=== PATIENT | female | born 1985 | race Asian ===

== ENCOUNTER 2024-04-13 07:35 | Inpatient (IN) ==
[2024-04-13] MEDS ORDERED: CALCIUM CARBONATE 500 MG CHEWABLE TAB PO PRN (08:10)
[2024-04-13] MEDS ORDERED: LIDOCAINE 1% LOCAL 20 ML VIAL INFIL PRN (08:10)
[2024-04-13] MEDS ORDERED: OXYTOCIN 30 UNITS/NSS 30 UNITS/500 ML BAG IV PRN (08:10)
[2024-04-13] MEDS ORDERED: ACETAMINOPHEN 325 MG TAB PO PRN (08:10)
[2024-04-13 08:36] LABS: Hemoglobin 11.3 g/dl (12.0-16.0); Mean Corpuscular Hemoglobin 25.8 pg (25.0-34.0); Mean Corpuscular Hgb Conc 32.3 g/dL (32.0-36.0); Mean Corpuscular Volume 79.9 fL (80.0-100.0); Mean Platelet Volume 10.8 fL (9.4-12.4); Platelet Count 250 K/uL (130-400); RDW Standard Deviation 40.8 fL (36.4-46.3); Red Blood Count 4.38 M/uL (4.20-5.40); White Blood Count 7.59 K/ul (4.8-10.8)
--- NOTE | 2024-04-13 08:48 | History & Physical Report ---
Date of Service April 13, 2024 Assessment & Plan (1) resulting from in-vitro fertilization: Plan: Cervical catheter placed under sterile conditions using speculum balloon passed through the cervix using a ring forceps all inflated to 30 cc patient tolerated well Pitocin will be started estimated weight 78 pounds GBS positive penicillin started Pitocin will be started Admission and Anticipated Discharge Date Admission Date: April 13, 2024 History of Present Illness Primary Care Provider: Savannah Vazquez, Patient at 39+ weeks IVF except induction today vertex on ultrasound yesterday cervix long thick closed Allergies Allergy/AdvReac Type Severity Reaction Status Date / Time No Known Allergies Allergy Verified 04/12/24 09:57 Home Medications Medication Instructions Recorded Confirmed Type ondansetron HCl 4 mg tablet 4 mg PO DAILY #30 tabs 09/28/23 04/12/24 Rx [id number] PO 10/02/23 04/12/24 History [ Plus] valacyclovir [Valtrex] PO 10/02/23 04/12/24 History Patient History Medical History Female infertility, unexplained Chicken pox IBS (irritable bowel syndrome) Lichen sclerosus Surgical History History of removal of cyst H/O wisdom tooth extraction Hx of tonsillectomy Family History Denies family history of Ovarian cancer Prostate cancer Myocardial infarction Breast cancer Colorectal cancer Social History Smoking Status: Never smoker Second Hand Exposure: No; Do You Dip or Chew Tobacco: No; Hx Alcohol Use: Yes Hx Substance Use: No Preferred Language: Mongolian marital status: marital status details: Mariusz Maloney (38) [phone] Current Living Situation: Spouse Current Living Situation Comment: Lives with spouse, 4 cats- changing litter current occupational status: employed current occupation: [employer] How many Children do You have: 0 Feels Safe at Home: Yes Childhood Exposure to Second-Hand Smoke: No Diet: lactose free caffeine: Yes Dental Care, Regularly: Yes Physical Activity Frequency: 1-2 Times per Week Seatbelt Use: always Sunscreen Use: Yes Physical Exam Constitutional: WD/WN, vitals as above well developed and well nourished Respiratory: normal respiratory effort, lungs clear to auscultation normal respiratory effort Cardiovascular: RRR, no murmur, no edema Gastrointestinal (Abdomen): normal bowel sounds, soft, nontender, no hepatosplenomegaly Results & Data Vital Signs (Past 12 Hours) Vital Signs Temp Pulse BP 04/13/24 08:05 97.9 F 72 108/66 Coding Level of Care Code None Diagnoses resulting from in-vitro fertilization O09.819 CPT Codes Kelly Bulb Placement for Cervical Ripening - 91079 ([id number])
[2024-04-13] MEDS: LACTATED RINGER'S 1,000 ML IV SCH (09:35)
[2024-04-13] MEDS: PENICILLIN GK 6 MU in DEXTROSE 5% 250 ML IV STA (09:37)
[2024-04-13] MEDS: OXYTOCIN 30 UNITS/NSS 30 UNITS/500 ML BAG IV PRN (09:39)
[2024-04-13] MEDS ORDERED: LACTATED RINGER'S 1,000 ML IV SCH (10:15)
[2024-04-13] MEDS: PENICILLIN GK 3 MU in DEXTROSE 5% 100 ML IV PRN (13:54)
[2024-04-13] MEDS ORDERED: ePHEDrine sulfate 50 MG/ML AMP IV PRN (19:24)
[2024-04-13] MEDS ORDERED: NALOXONE HCL 1 MG in SODIUM CHLORIDE 0.9% 1,000 ML IV PRN (19:24)
[2024-04-13] MEDS ORDERED: NALOXONE HCL 0.4 MG/1 ML VIAL/CARP IV PRN (19:24)
[2024-04-13] MEDS ORDERED: NALBUPHINE HCL INJ 10 MG/ML AMP IV PRN (19:24)
[2024-04-13] MEDS ORDERED: LIDOCAINE 2% MPF LOCAL 5 ML VIAL EPI PRN (19:24)
[2024-04-13] MEDS ORDERED: diphenhydrAMINE 50 MG/ML VIAL IV PRN (19:24)
[2024-04-13] MEDS ORDERED: ROPIVACAINE 0.5% PF 5 MG/ML 20 ML VIAL EPI PRN (19:24)
--- NOTE | 2024-04-13 19:25 | Anesthesiology Consultation ---
Date of Service April 13, 2024 Assessment & Plan (1) Encounter for pre-operative examination: Chart Review Chart Review: Patient NOT seen in Pre Admission Testing and Acceptable Risk for Labor Epidural Consults Requested none History Height/Weight Height: 5 ft Weight: 70.76 kg Allergies Allergy/AdvReac Type Severity Reaction Status Date / Time No Known Allergies Allergy Verified 04/13/24 08:53 Medications Home Medications Medication Instructions Recorded Confirmed Last Taken vits [id number]-[id number] fum 1 tab PO DAILY 04/13/24 04/13/24 04/12/24 20:00 27 mg iron-folic acid 800 mcg tablet ( Vitamin) valacyclovir 500 mg tablet 500 mg PO DAILY 04/13/24 04/13/24 04/13/24 07:00 (Valtrex) Active Medications Generic Name Dose Route Start Last Admin Trade Name Freq PRN Reason Stop Dose Admin Oxytocin 30 units in 500 mls @ 14 mls/hr 04/13/24 08:10 04/13/24 19:03 Pitocin 30 Units/Nss IV 04/15/24 08:09 0.84 units/hr .Q24H PRN 14 mls/hr Labor Induction/Augmentation Titration Protocol 0.84 UNITS/HR Penicillin G Potassium 3 mu/ 106 mls @ 100 mls/hr 04/13/24 11:10 04/13/24 18:05 Dextrose IV 04/23/24 11:09 100 mls/hr Q4H PRN Administration GBS(+) Until Delivery Lactated Ringer's 1,000 mls @ 50 mls/hr 04/13/24 09:30 04/13/24 09:35 Lr IV 04/14/24 09:29 50 mls/hr .Q20H SUZI Administration Past Medical History Medical History (Updated 04/13/24 @ 19:25 by Giovani Truong MD) Encounter for pre-operative examination Female infertility, unexplained Chicken pox IBS (irritable bowel syndrome) Lichen sclerosus Past Family History Family History Denies family history of Ovarian cancer Prostate cancer Myocardial infarction Breast cancer Colorectal cancer Past Surgical History Surgical History History of removal of cyst H/O wisdom tooth extraction Hx of tonsillectomy Social History Smoking Status: Never smoker Do You Dip or Chew Tobacco: No Hx Alcohol Use: No Hx Substance Use: No Physical Exam Vital Signs Last Vital Signs Temp 36.8 C 04/13/24 15:47 Pulse 78 04/13/24 19:46 Resp 18 04/13/24 15:47 BP 121/74 04/13/24 19:45 Pulse Ox 94 04/13/24 19:46 Testing Laboratory Results 04/13/24 08:20
[2024-04-13] MEDS: BUPIVACAINE 0.25% PF 30 ML VIAL EPI STA (19:49)
[2024-04-13] MEDS: LIDOCAINE 2%/EPINEPHRINE 1:200,000 20 ML PF EPI STA (19:49)
[2024-04-13] MEDS: fentaNYL citrate PF 100 MCG/2 ML VIAL EPI STA (19:50)
[2024-04-13] MEDS: fentANYL 2 MCG/ML BUPIVacaine 0.125%-NSS 100ML BAG EPI PRN (19:50)
[2024-04-13] MEDS: LIDOCAINE 2%/EPINEPHRINE 1:200,000 20 ML PF ONE (20:16)
[2024-04-13] MEDS: fentaNYL citrate PF 100 MCG/2 ML VIAL ONE (20:16)
[2024-04-13] MEDS: fentANYL 2 MCG/ML BUPIVacaine 0.125%-NSS 100ML BAG ONE (20:16)
[2024-04-13] MEDS: BUPIVACAINE 0.25% PF 30 ML VIAL ONE (20:16)
[2024-04-13] MEDS: SODIUM CHLORIDE 0.9% PF INJ 10 ML VIAL ONE (20:17)
[2024-04-13] MEDS: ePHEDrine sulfate 50 MG/ML AMP ONE (20:17)
[2024-04-13] MEDS: ONDANSETRON INJ 2 MG/ML 2 ML VIAL IV PRN (23:00)
[2024-04-14] MEDS: SODIUM CHLORIDE 0.9% PF INJ 10 ML VIAL EPI STA (02:20)
[2024-04-14] MEDS ORDERED: NURSING L&D Epidural Breakthrough Pain Update ONE (04:21)
[2024-04-14] MEDS: BUPIVACAINE 0.25% PF 30 ML VIAL EPI PRN (06:10)
--- NOTE | 2024-04-14 06:11 | Anesthesia Procedure Note ---
Date of Service April 14, 2024 Anesthesia Epidural Re-Dose Vital Signs Temp Pulse Resp BP Pulse Ox 36.7 C 78 18 104/60 100 04/14/24 03:00 04/14/24 06:09 04/14/24 04:00 04/14/24 06:09 04/14/24 06:04 Notes Pain Intensity: 7 Dilatation (cm): 6.0 Effacement (%): 75 Called by nursing to evaluate epidural as the patient is having increased pain. The epidural was re-dosed with the following medications (all medications via epidural route) after negative aspiration of the epidural catheter for CSF/HEME. 4ml of 0.25% bupivacaine mixed with 4ml of 2% lidocaine. After Epidural Re-Dose Mental Status: alert / awake / arousable Pain: improving with treatment Airway Patency, RR, SpO2: stable & adequate BP & HR: stable & adequate
--- NOTE | 2024-04-14 07:38 | Labor Progress Brief Note ---
Date of Service April 14, 2024 Patient has made slow progress she has reached a 6 cm on 20 milliunits of Pitocin she had a cervical Kelly and spontaneous rupture of membranes I just checked her now it is 6 0 station 100% IUPC is placed to see if we can optimize her contraction pattern discussed the possibility of however contraction pattern on the external toco is not picking an ideal pattern Assessment & Plan Admission and Anticipated Discharge Date Admission Date: April 13, 2024 Results & Data Vital Signs (Past 12 Hours) Vital Signs Temp Pulse Resp BP Pulse Ox 04/14/24 07:34 72 100 04/14/24 07:29 70 100 04/14/24 07:24 77 114/57 L 100 04/14/24 07:19 82 100 04/14/24 07:14 80 100 04/14/24 07:09 99 04/14/24 07:09 76 04/14/24 07:09 75 100/56 L 04/14/24 07:04 72 98 04/14/24 06:59 74 98 04/14/24 06:54 72 99/56 L 99 04/14/24 06:49 72 99 04/14/24 06:44 72 99 04/14/24 06:39 98 04/14/24 06:39 73 04/14/24 06:39 75 102/57 L 04/14/24 06:34 80 100 04/14/24 06:29 76 100 04/14/24 06:24 85 100 04/14/24 06:23 75 105/57 L 04/14/24 06:21 76 96/54 L 04/14/24 06:19 76 104/60 100 04/14/24 06:14 77 100 04/14/24 06:13 77 105/60 04/14/24 06:11 75 104/61 04/14/24 06:09 100 04/14/24 06:09 73 04/14/24 06:09 78 104/60 04/14/24 06:07 75 107/59 L 04/14/24 06:05 71 98/53 L 04/14/24 06:04 75 100 04/14/24 06:03 78 106/57 L 04/14/24 06:01 75 107/57 L 04/14/24 05:59 79 100 04/14/24 05:57 65 89/52 L 04/14/24 05:55 60 93/50 L 04/14/24 05:54 69 100 04/14/24 05:53 67 104/65 04/14/24 05:49 69 98 04/14/24 05:48 62 102/66 04/14/24 05:44 61 99 04/14/24 05:39 69 99 04/14/24 05:34 99 04/14/24 05:34 67 04/14/24 05:34 70 112/71 92 04/14/24 05:30 97.9 F 04/14/24 05:29 79 100 04/14/24 05:24 73 99 04/14/24 05:19 72 113/73 99 04/14/24 05:14 73 99 04/14/24 05:09 71 99 04/14/24 05:04 98 04/14/24 05:04 67 04/14/24 05:04 68 104/72 04/14/24 04:59 68 99 04/14/24 04:54 72 98 04/14/24 04:50 68 113/67 04/14/24 04:49 70 100 04/14/24 04:44 74 100 04/14/24 04:39 72 99 04/14/24 04:35 75 110/56 L 04/14/24 04:34 83 100 04/14/24 04:29 70 98 04/14/24 04:24 72 97 04/14/24 04:19 67 97/58 L 99 04/14/24 04:14 71 99 04/14/24 04:09 71 99 04/14/24 04:04 72 98 04/14/24 04:03 68 93/50 L 04/14/24 04:00 18 04/14/24 04:00 18 04/14/24 03:59 74 98 04/14/24 03:54 64 99 04/14/24 03:49 66 100 04/14/24 03:48 68 101/55 L 04/14/24 03:44 63 98 04/14/24 03:39 65 98 04/14/24 03:34 65 100/56 L 99 04/14/24 03:30 18 04/14/24 03:30 18 04/14/24 03:29 64 98 04/14/24 03:24 67 98 04/14/24 03:19 71 99 04/14/24 03:18 68 97/56 L 04/14/24 03:14 65 98 04/14/24 03:09 69 98 04/14/24 03:04 100 04/14/24 03:04 72 04/14/24 03:04 70 108/67 04/14/24 03:00 98.1 F 04/14/24 02:59 86 100 04/14/24 02:54 59 L 98 04/14/24 02:49 100 04/14/24 02:49 77 04/14/24 02:49 66 108/62 04/14/24 02:44 58 L 97 04/14/24 02:39 57 L 98 04/14/24 02:34 60 98 04/14/24 02:33 67 111/69 04/14/24 02:29 61 97 04/14/24 02:24 61 98 04/14/24 02:19 99 04/14/24 02:19 66 04/14/24 02:19 62 103/64 04/14/24 02:14 73 99 04/14/24 02:09 78 98 04/14/24 02:04 65 99 04/14/24 02:03 71 110/74 04/14/24 01:59 81 100 04/14/24 01:54 68 100 04/14/24 01:49 100 04/14/24 01:49 69 04/14/24 01:49 75 113/74 04/14/24 01:44 68 98 04/14/24 01:39 63 98 04/14/24 01:34 66 105/71 98 04/14/24 01:29 75 98 04/14/24 01:24 69 100 04/14/24 01:19 64 100 04/14/24 01:18 70 123/77 04/14/24 01:15 97.7 F 04/14/24 01:14 81 100 04/14/24 01:09 67 98 04/14/24 01:04 63 98 04/14/24 01:03 72 100/61 04/14/24 00:59 67 98 04/14/24 00:54 67 99 04/14/24 00:49 63 98 04/14/24 00:48 66 97/57 L 04/14/24 00:44 61 98 11/07/24 00:39 69 99 04/14/24 00:34 65 98 04/14/24 00:33 64 106/65 04/14/24 00:29 67 99 04/14/24 00:24 69 99 04/14/24 00:20 68 108/63 04/14/24 00:19 72 100 04/14/24 00:14 81 100 04/14/24 00:09 62 98 04/14/24 00:04 58 L 98 04/14/24 00:03 58 L 96/60 L 04/13/24 23:59 99 04/13/24 23:59 61 04/13/24 23:54 99 04/13/24 23:54 63 04/13/24 23:49 98 04/13/24 23:49 54 L 04/13/24 23:48 55 L 04/13/24 23:48 93/61 L 04/13/24 23:44 98 04/13/24 23:44 56 L 04/13/24 23:39 98 04/13/24 23:39 62 04/13/24 23:34 99 04/13/24 23:34 56 L 04/13/24 23:33 55 L 04/13/24 23:33 103/56 L 04/13/24 23:29 99 04/13/24 23:29 57 L 04/13/24 23:24 98 04/13/24 23:24 55 L 04/13/24 23:19 99 04/13/24 23:19 61 04/13/24 23:18 69 04/13/24 23:18 100/57 L 04/13/24 23:15 97.7 F 04/13/24 23:14 99 04/13/24 23:14 69 04/13/24 23:09 100 04/13/24 23:09 66 04/13/24 23:04 99 04/13/24 23:04 76 04/13/24 23:03 74 04/13/24 23:03 107/78 04/13/24 22:59 100 04/13/24 22:59 65 04/13/24 22:56 93 04/13/24 22:56 74 04/13/24 22:54 100 04/13/24 22:54 69 04/13/24 22:50 92 11/06/24 22:50 74 04/13/24 22:49 100 04/13/24 22:49 65 04/13/24 22:48 64 04/13/24 22:48 112/76 04/13/24 22:44 100 04/13/24 22:44 68 04/13/24 22:39 100 04/13/24 22:39 69 04/13/24 22:34 100 04/13/24 22:34 73 04/13/24 22:34 71 04/13/24 22:34 114/75 04/13/24 22:29 97 04/13/24 22:29 61 04/13/24 22:24 100 04/13/24 22:24 58 L 04/13/24 22:19 98 04/13/24 22:19 57 L 04/13/24 22:18 62 04/13/24 22:18 107/62 04/13/24 22:14 98 04/13/24 22:14 55 L 04/13/24 22:09 99 04/13/24 22:09 62 04/13/24 22:05 60 04/13/24 22:05 101/61 04/13/24 22:04 100 04/13/24 22:04 64 04/13/24 21:59 100 04/13/24 21:59 72 04/13/24 21:54 99 04/13/24 21:54 57 L 04/13/24 21:49 100 04/13/24 21:49 58 L 04/13/24 21:49 57 L 04/13/24 21:49 104/60 04/13/24 21:44 100 04/13/24 21:44 65 04/13/24 21:39 100 04/13/24 21:39 68 04/13/24 21:34 100 04/13/24 21:34 69 04/13/24 21:33 94 04/13/24 21:33 76 04/13/24 21:29 100 04/13/24 21:29 72 04/13/24 21:24 100 04/13/24 21:24 66 04/13/24 21:19 100 04/13/24 21:19 67 04/13/24 21:19 102/53 L 04/13/24 21:14 98 04/13/24 21:14 61 04/13/24 21:09 99 04/13/24 21:09 61 04/13/24 21:04 99 04/13/24 21:04 61 04/13/24 21:03 57 L 04/13/24 21:03 96/60 L 04/13/24 20:59 98 04/13/24 20:59 57 L 04/13/24 20:54 98 04/13/24 20:54 59 L 04/13/24 20:49 100 04/13/24 20:49 63 04/13/24 20:47 58 L 04/13/24 20:47 92/57 L 04/13/24 20:44 100 04/13/24 20:44 67 04/13/24 20:43 59 L 04/13/24 20:43 97/61 L 04/13/24 20:39 100 04/13/24 20:39 65 04/13/24 20:37 64 04/13/24 20:37 93/57 L 04/13/24 20:34 100 04/13/24 20:34 70 04/13/24 20:29 98 04/13/24 20:29 70 04/13/24 20:26 58 L 04/13/24 20:26 87/54 L 04/13/24 20:24 100 04/13/24 20:24 61 04/13/24 20:21 65 04/13/24 20:21 95/56 L 04/13/24 20:19 100 04/13/24 20:19 69 04/13/24 20:15 72 04/13/24 20:15 107/62 04/13/24 20:14 100 04/13/24 20:14 70 04/13/24 20:11 66 04/13/24 20:11 107/61 04/13/24 20:09 100 04/13/24 20:09 73 04/13/24 20:06 69 04/13/24 20:06 118/57 L 04/13/24 20:04 100 04/13/24 20:04 72 04/13/24 20:00 73 04/13/24 20:00 102/60 04/13/24 19:59 98 04/13/24 19:59 71 04/13/24 19:57 73 04/13/24 19:57 96/59 L 04/13/24 19:55 70 04/13/24 19:55 99/61 L 04/13/24 19:54 98 04/13/24 19:54 76 04/13/24 19:53 72 04/13/24 19:53 107/72 04/13/24 19:51 74 04/13/24 19:51 105/72 04/13/24 19:49 100 04/13/24 19:49 71 04/13/24 19:49 72 04/13/24 19:49 110/74 04/13/24 19:47 69 04/13/24 19:47 109/70 04/13/24 19:46 94 04/13/24 19:46 78 04/13/24 19:45 79 04/13/24 19:45 121/74 04/13/24 19:44 99 04/13/24 19:44 81 04/13/24 19:39 100 04/13/24 19:39 78 Coding Level of Care Code None
--- NOTE | 2024-04-14 10:27 | Anesthesia Procedure Note ---
Date of Service April 14, 2024 Anesthesia Epidural Re-Dose Vital Signs Temp Pulse Resp BP Pulse Ox 36.6 C 69 16 130/82 100 04/14/24 05:30 04/14/24 10:23 04/14/24 07:15 04/14/24 10:23 04/14/24 10:19 Notes Pain Intensity: 7 Dilatation (cm): 6.0 Effacement (%): 75 Heart Rate: 120 Called by nursing to evaluate epidural as the patient is having increased pain. The epidural was re-dosed with the following medications (all medications via epidural route) after negative aspiration of the epidural catheter for CSF/HEME. 0.25 % Bupivacaine with Fentanyl 100 mcg - 12 ml After Epidural Re-Dose Mental Status: alert / awake / arousable and participated in evaluation Pain: adequately controlled Airway Patency, RR, SpO2: stable & adequate BP & HR: stable & adequate Additional Notes: @ 1022am, pt epidural bolused w/ 12 ml 0.17% bupivacaine + 100 mcgs fentanyl;neg. asp w/ incremental injection.
[2024-04-14] MEDS: SODIUM CHLORIDE 0.9% PF INJ 10 ML VIAL EPI PRN (10:28)
[2024-04-14] MEDS: fentaNYL citrate PF 100 MCG/2 ML VIAL EPI PRN (10:28)
[2024-04-14] MEDS ORDERED: bisacodyL 10 MG SUPP PR PRN (17:05)
[2024-04-14] MEDS ORDERED: OXYTOCIN 30 UNITS/NSS 30 UNITS/500 ML BAG IV PRN (17:05)
[2024-04-14] MEDS ORDERED: HYDROCORTISONE ACETATE 25 MG SUPP PR PRN (17:05)
[2024-04-14] MEDS ORDERED: DIPHTHER/TETAN/PERTUS Vaccine (Tdap, Adol/Adult) 0.5mL IM ONE (17:05)
--- NOTE | 2024-04-14 17:11 | Delivery Summary ---
Vaginal Delivery Summary Date of Service April 14, 2024 Vaginal Delivery Summary and 2nd Degree LAC Progressed to 10 cm dilated, 100% effaced +2 station pushed over intact perineum with epidural anesthesia and delivered a viable female with weight and Apgars pending. Had the delivered without difficulty quickly followed by shoulders and body. was noted be vigorous soon after delivery and a 1 minute delayed cord clamping was initiated. Cord was then double clamped and cut. Attention turned to deliver the placenta was delivered intact three-vessel cord gentle cord traction. No inspection of perineum vagina cervix there is noted be a second-degree perineal laceration which was repaired with 3-0 Vicryl in the traditional crown stitch. Needle sponge and instrument counts are correct at the completion of the case. Both mother and stable in the immediate post delivery timeframe. No complications noted and blood loss per QBL. [facility] Vaginal Delivery Charge Delivery Type Details: and 2nd Degree LAC
--- NOTE | 2024-04-14 17:42 | Anesthesia Procedure Note ---
Date of Service April 14, 2024 Anesthesia Post Epidural Note Vital Signs Vital Signs: Temp Pulse Resp BP Pulse Ox 36.7 C 100 H 18 112/63 97 04/14/24 15:53 04/14/24 17:25 04/14/24 15:53 04/14/24 17:25 04/14/24 16:29 Pain Intensity Bilateral Lower Abdomen: Pain Intensity: 3 Notes Mental Status: alert / awake / arousable and participated in evaluation Nausea / Vomiting: adequately controlled Pain: adequately controlled Airway Patency, RR, SpO2: stable & adequate BP & HR: stable & adequate Hydration State: stable & adequate Neuraxial Anesthesia: was administered and sensory block resolved Anesthetic Complications: no major complications apparent and Pt Satisfied with anesthetic care Epidural: Removed without complications and With tip intact
[2024-04-14] MEDS: METHYLERGONOVINE MALEATE 0.2 MG/ML AMP ONE (18:35)
[2024-04-14] MEDS: IBUPROFEN 600 MG TAB PO PRN (18:47)
[2024-04-14] MEDS: BENZOCAINE 20% SPRY 85 APPLN/85 GM CAN EXT PRN (18:47)
[2024-04-14] MEDS: miSOPROStoL 200 MCG TAB ONE (19:25)
--- NOTE | 2024-04-14 19:47 | Obstetrical Progress Note ---
Date of Service April 14, 2024 Assessment & Plan Admission and Anticipated Discharge Date Admission Date: April 13, 2024 Subjective Presented to bedside for evaluation due to 250 mL of additional bleeding since delivery. At bedside another 300 mL of clot was expressed from the uterus. Methergine and Cytotec given. Firm uterus 2 cm below the umbilicus noted after evacuation of clot from the uterus. Minimal bleeding noted. Will continue to monitor. Results & Data Vital Signs (Past 12 Hours) Vital Signs Temp Pulse Resp BP Pulse Ox 04/14/24 19:35 74 126/63 04/14/24 19:20 76 156/66 H 04/14/24 19:14 106 H 143/77 H 04/14/24 19:05 96 H 142/81 H 04/14/24 18:49 85 107/66 04/14/24 18:44 83 106/63 04/14/24 18:39 100 H 113/56 L 04/14/24 18:35 95 H 110/55 L 04/14/24 18:29 89 79/51 L 04/14/24 18:24 80 102/65 04/14/24 18:19 83 99/65 L 04/14/24 18:18 92 H 99/62 L 04/14/24 18:09 97 H 111/62 04/14/24 17:54 93 H 102/56 L 04/14/24 17:25 100 H 112/63 04/14/24 16:54 92 H 113/69 04/14/24 16:39 94 H 108/59 L 04/14/24 16:29 104 H 97 04/14/24 16:25 100 H 93 04/14/24 16:24 97 H 137/70 96 04/14/24 16:19 118 H 95 04/14/24 16:14 115 H 98 04/14/24 16:09 103 H 97 04/14/24 16:04 109 H 97 04/14/24 16:03 111 H 93 04/14/24 15:59 106 H 96 04/14/24 15:58 100 H 89 L 04/14/24 15:54 104 H 110/63 96 04/14/24 15:53 18 04/14/24 15:53 36.7 C 18 04/14/24 15:52 143 H 88 L 04/14/24 15:49 103 H 76 L 04/14/24 15:47 117 H 90 04/14/24 15:44 137 H 99 04/14/24 15:42 98 H 92 04/14/24 15:39 96 H 80 L 04/14/24 15:36 90 88 L 04/14/24 15:34 114 H 97 04/14/24 15:29 94 04/14/24 15:29 109 H 04/14/24 15:29 101 H 91 04/14/24 15:25 101 H 140/63 04/14/24 15:24 91 H 87 L 04/14/24 15:21 85 82 L 04/14/24 15:19 115 H 97 04/14/24 15:14 97 H 100 04/14/24 15:10 85 124/68 04/14/24 15:09 93 H 99 04/14/24 15:04 82 100 04/14/24 14:59 97 04/14/24 14:59 97 H 04/14/24 14:59 93 H 92 04/14/24 14:56 93 H 129/94 04/14/24 14:54 94 H 99 04/14/24 14:49 115 H 93 04/14/24 14:44 86 100 04/14/24 14:39 89 100 04/14/24 14:38 90 120/77 04/14/24 14:34 100 H 100 04/14/24 14:29 100 H 100 04/14/24 14:26 117 H 90 04/14/24 14:25 120 H 115/74 04/14/24 14:24 138 H 91 04/14/24 14:20 103 H 85 L 04/14/24 14:19 100 H 100 04/14/24 14:14 118 H 99 04/14/24 14:10 99 H 118/73 04/14/24 14:09 99 H 100 04/14/24 14:04 100 04/14/24 14:04 86 04/14/24 14:04 86 92 04/14/24 13:59 89 99 04/14/24 13:55 92 H 119/82 04/14/24 13:54 92 H 99 04/14/24 13:49 61 97 04/14/24 13:44 76 99 04/14/24 13:39 67 96/61 L 98 04/14/24 13:37 16 04/14/24 13:37 37.2 C 16 04/14/24 13:34 67 99 04/14/24 13:29 71 100 04/14/24 13:25 68 115/62 04/14/24 13:24 71 99 04/14/24 13:19 69 99 04/14/24 13:14 75 99 04/14/24 13:09 69 109/66 99 04/14/24 13:08 78 90 04/14/24 13:04 70 100 04/14/24 12:59 72 100 04/14/24 12:54 100 04/14/24 12:54 70 04/14/24 12:54 71 112/67 04/14/24 12:49 71 100 04/14/24 12:44 69 100 04/14/24 12:42 71 93 04/14/24 12:40 73 114/68 04/14/24 12:39 75 100 04/14/24 12:34 71 100 04/14/24 12:29 73 100 04/14/24 12:24 100 04/14/24 12:24 73 04/14/24 12:24 75 123/74 04/14/24 12:19 75 100 04/14/24 12:14 73 100 04/14/24 12:10 81 126/71 04/14/24 12:09 83 100 04/14/24 12:04 85 98 04/14/24 12:03 88 91 04/14/24 11:59 83 99 04/14/24 11:58 84 92 04/14/24 11:55 18 04/14/24 11:55 37.4 C 18 04/14/24 11:54 99 04/14/24 11:54 86 04/14/24 11:54 99 H 126/82 04/14/24 11:49 92 H 100 04/14/24 11:44 101 H 99 04/14/24 11:43 87 91 04/14/24 11:39 80 122/78 99 04/14/24 11:34 72 100 04/14/24 11:29 74 100 04/14/24 11:25 85 90 04/14/24 11:24 96 04/14/24 11:24 87 04/14/24 11:24 84 123/76 04/14/24 11:19 78 100 04/14/24 11:14 73 100 04/14/24 11:09 73 130/79 100 04/14/24 11:04 80 96 04/14/24 11:00 101 H 89 L 04/14/24 10:59 112 H 100 04/14/24 10:54 100 04/14/24 10:54 124 H 04/14/24 10:54 107 H 137/84 04/14/24 10:52 71 91 04/14/24 10:49 70 100 04/14/24 10:45 81 94 04/14/24 10:44 80 96 04/14/24 10:39 100 04/14/24 10:39 81 04/14/24 10:39 90 128/85 04/14/24 10:36 71 94 04/14/24 10:34 76 100 04/14/24 10:31 71 93 04/14/24 10:29 74 97 04/14/24 10:27 67 124/80 04/14/24 10:24 64 121/82 99 04/14/24 10:23 69 130/82 04/14/24 10:19 75 100 04/14/24 10:15 77 93 04/14/24 10:14 69 100 04/14/24 10:10 70 119/73 04/14/24 10:09 69 100 04/14/24 10:04 80 100 04/14/24 10:02 72 89 L 04/14/24 09:59 72 100 04/14/24 09:55 79 126/83 04/14/24 09:54 80 100 04/14/24 09:49 86 100 04/14/24 09:44 97 H 100 04/14/24 09:42 90 93 04/14/24 09:40 80 103/57 L 04/14/24 09:39 83 100 04/14/24 09:34 78 100 04/14/24 09:29 79 99 04/14/24 09:24 72 102/59 L 100 04/14/24 09:19 73 100 04/14/24 09:14 71 100 04/14/24 09:09 100 04/14/24 09:09 71 04/14/24 09:09 70 101/58 L 04/14/24 09:04 68 100 04/14/24 08:59 65 100 04/14/24 08:55 71 107/60 04/14/24 08:54 69 100 04/14/24 08:49 72 100 04/14/24 08:44 70 100 04/14/24 08:43 74 91 04/14/24 08:39 100 04/14/24 08:39 62 04/14/24 08:39 61 107/70 04/14/24 08:34 63 99 04/14/24 08:29 62 99 04/14/24 08:24 63 116/76 100 04/14/24 08:19 65 99 04/14/24 08:14 61 100 04/14/24 08:09 99 04/14/24 08:09 60 04/14/24 08:09 61 114/70 04/14/24 08:04 67 100 04/14/24 07:59 66 100 04/14/24 07:55 63 132/71 04/14/24 07:54 67 100 04/14/24 07:49 77 100 PG Care Time/CCT Total # of Minutes Spent Total Time Spent with Patient: Total time spent is greater than 50% in coordination of care (as documented) at patient's floor/unit and/or counseling patient: Coding Level of Care Code None
[2024-04-14] MEDS: oxyCODONE/ACETAMINOPHEN 5mg/325mg TAB PO PRN (19:53)
[2024-04-14] MEDS: METHYLERGONOVINE MALEATE 0.2 MG/ML AMP IM ONE (19:56)
[2024-04-14] MEDS: miSOPROStoL 200 MCG TAB PR ONE (19:57)
[2024-04-15] MEDS: ACETAMINOPHEN 325 MG TAB PO PRN (03:40)
[2024-04-15 06:33] LABS: Hematocrit (blood only) 26.9 % (37.0-47.0); Hemoglobin 8.7 g/dl (12.0-16.0)
[2024-04-15] MEDS: PRENATAL VITAMIN 1 TAB PO SCH (07:48)
[2024-04-15] MEDS: DOCUSATE SODIUM 100 MG CAP PO SCH (07:49)
[2024-04-15] MEDS: FERROUS SULFATE 325 MG TAB PO SCH (07:49)
--- NOTE | 2024-04-15 08:43 | Obstetrical Progress Note ---
Date of Service April 15, 2024 Assessment & Plan (1) Encounter for care and examination after delivery: Day 1 status post vaginal delivery complicated by a delayed hemorrhage. Bleeding since that event has been normal. Is reporting lightheadedness with ambulating currently and recommend she continue to monitor and if symptoms persist would recommend a blood transfusion. H/H this morning was 8.7/26.9. Repeat H/H scheduled for tomorrow morning. Otherwise patient doing well and continue with routine care. (2) hemorrhage: hemorrhage type: secondary hemorrhage Qualified Code(s): O72.2 - Delayed and secondary hemorrhage Subjective Ambulation: ambulating normally Voiding: no voiding problems Passing Gas:: Yes Diet Tolerance:: regular diet Lochia:: Moderate Feeding Type:: breast feeding Had increased bleeding in her recovery from delivery on labor and delivery. Bleeding since then has been normal. She did receive Methergine and Cytotec due to increased bleeding that occurred about an hour after delivery. Reports feeling lightheaded while ambulating to the bathroom overnight. I recommended she continue to monitor and if symptoms persist or worsen would consider a blood transfusion. Will plan for blood counts again in the morning Physical Exam Constitutional WD/WN, vitals as above Respiratory normal respiratory effort; no respiratory distress and no labored breathing Cardiovascular Extremities: no calf tenderness Gastrointestinal (Abdomen) Inspection/Auscultation: abdomen normal to inspection; abdomen not distended Percussion/Palpation: abdomen soft; abdomen nontender, no guarding and abdomen not rigid Genitourinary OB Exam Abdomen: + fundal height Fundus: + firm and + relation to umbilicus (Below); not tender or not boggy Results & Data Vital Signs (Past 12 Hours) Vital Signs Temp Pulse Resp BP Pulse Ox O2 Del Method 04/15/24 07:14 36.8 C 77 16 84/58 L 98 Room Air 04/15/24 03:43 98/66 L 04/15/24 03:35 37 C 69 16 98 Room Air 04/14/24 22:52 37.5 C 80 18 108/59 L 97 Room Air 04/14/24 20:57 37.3 C 80 16 112/73 97 Room Air 04/14/24 19:45 37.0 C 18
[2024-04-15] MEDS: bisacodyL 5 MG TABEC PO SCH (19:46)
[2024-04-15 21:02] VITALS: TEMP 97.7
[2024-04-16 00:05] VITALS: RESP 16
[2024-04-16 06:02] LABS: Hematocrit (blood only) 24.8 % (37.0-47.0); Hemoglobin 8.1 g/dl (12.0-16.0)
--- NOTE | 2024-04-16 08:48 | Obstetrical Progress Note ---
Date of Service April 16, 2024 Assessment & Plan (1) Encounter for care and examination after delivery: 38 yo PP2 from , doing well -Meeting all pp milestones -O+/rubella immune/ -f/u 6 weeks for appt, dc home. Hgb stable Subjective Ambulation: ambulating normally Voiding: no voiding problems Passing Gas:: Yes Diet Tolerance:: regular diet Lochia:: Small Feeding Type:: breast feeding Pain well managed with medication Review of Systems Denies fevers, chills, n/v, NAYAK, CP, SOB Physical Exam Constitutional WD/WN, vitals as above no acute distress Respiratory normal respiratory effort, lungs clear to auscultation Gastrointestinal (Abdomen) Percussion/Palpation: abdomen soft; abdomen nontender fundus firm at umbilicus and NT Musculoskeletal BLE symmetric, nonerythematous, nontender Results & Data Vital Signs (Past 12 Hours) Vital Signs Temp Pulse Resp BP Pulse Ox O2 Del Method 04/16/24 03:10 108/67 04/15/24 23:30 97.7 F 76 16 90/56 L 99 Room Air
[2024-04-16 09:29] VITALS: BP 99/60; PULSE 70; O2SAT 98
== END 2024-04-16 12:34 | disposition home or self-care (01) | DRG 807 ==
LOC: 4S1 07:35 → 4E1 04-14 21:25